=== PATIENT | male | born 1950 | race Caucasian/White ===

== ENCOUNTER 2020-05-16 10:00 | Inpatient (IN) ==
[~2020-05-16 10:00] MED LIST: Buffered Lidocaine 1% SYRIN 1 ml INTRADERM ONE; Famotidine IV 10 MG/ML 2 ml VIAL (20 mg) IV ONE; Lactated Ringers 1000 ml BAG 1,000 ML IV SCH; ceFAZolin 2 GM PREMIX 2 GM/50 ML BAG ONE
[2020-05-16] MEDS ORDERED: Propofol 10 MG/ML 20 ML BTL ONE ×3 (10:08→13:38)
[2020-05-16] MEDS ORDERED: Midazolam 2 mg/2 ml VIAL 1 mg/ml 2 ml VIAL (2 mg) ONE (10:08)
[2020-05-16] MEDS ORDERED: Famotidine IV 10 MG/ML 2 ml VIAL (20 mg) ONE (10:25)
[2020-05-16] MEDS ORDERED: ROPIVACAINE 5 MG/ML 30 ML BTL (0.5%) ONE (11:30)
[2020-05-16] MEDS ORDERED: Ondansetron 4 mg VIAL 2 MG/ML 2 ml VIAL ONE (11:33)
[2020-05-16] MEDS ORDERED: EPHEDrine (Pressors) 50 MG/ML VIAL ONE (12:48)
[2020-05-16] MEDS ORDERED: Morphine 2 MG/ML SYRINGE IV PRN (13:10)
[2020-05-16] MEDS ORDERED: Ondansetron 4 mg VIAL 2 MG/ML 2 ml VIAL IV PRN ×2 (13:10→15:29)
[2020-05-16] MEDS ORDERED: Lactulose 30 ml UDC PO PRN (13:10)
[2020-05-16] MEDS ORDERED: Magnesium Hydroxide LIQ 30 ML UDC PO PRN (13:10)
[2020-05-16] MEDS ORDERED: diPHENhydraMINE 25 mg TAB PO PRN (13:10)
[2020-05-16] MEDS ORDERED: diPHENhydraMINE IV 50 MG/ML 1 ml VIAL (BENADRYL) IV PRN (13:10)
[2020-05-16] MEDS ORDERED: HYDROmorphone 1 MG/1 ML SYRINGE IV PRN (15:29)
[2020-05-16] MEDS ORDERED: fentaNYL 100 mcg/2 ml 50 MCG/ML VIAL IV PRN (15:29)
[2020-05-16] MEDS ORDERED: Naloxone 0.4 mg VIAL 0.4 mg/ml 1 ml VIAL IV PRN (15:29)
[2020-05-16] MEDS ORDERED: fentaNYL 100 mcg/2 ml 50 MCG/ML VIAL ONE (15:36)
[2020-05-16] MEDS: Lactated Ringers 1000 ml BAG 1,000 ML IV SCH (16:45)
[2020-05-16] MEDS: oxyCODONE/Acetamin 5/325 mg TAB PO PRN (19:36)
[2020-05-16] MEDS: ceFAZolin 1 GM ADVAN 1 GM in NS 0.9% 50 ML 50 ML IVPB SCH (20:39)
[2020-05-16] MEDS ORDERED: Latanoprost 0.005% 2.5 ml BTL BOTH EYES SCH (21:00)
[2020-05-16] MEDS: Magnesium Hydroxide LIQ 30 ML UDC PO SCH (22:47)
[2020-05-17] MEDS: oxyCODONE/Acetamin 5/325 mg TAB PO PRN ×2 (01:06→05:42)
[2020-05-17] MEDS: ceFAZolin 1 GM ADVAN 1 GM in NS 0.9% 50 ML 50 ML IVPB SCH ×2 (04:30→12:05)
[2020-05-17] MEDS: Lactated Ringers 1000 ml BAG 1,000 ML IV SCH (04:31)
[2020-05-17 05:59] LABS: Hematocrit 37 % (42-52); Hemoglobin 12.6 g/dL (14.0-18.0); Mean Platelet Volume 7.6 fL (7.4-10.4); Platelet Count 181 10^3/uL (150-450)
[2020-05-17 06:19] LABS: BUN/Creatinine Ratio 13.8 (8-20); Calcium 8.2 mg/dL (8.6-10.3); EGFR African American 104.7 (>60); EGFR Non-African American 86.5 (>60); Potassium 4.1 mmol/L (3.5-5.0)
[2020-05-17] MEDS: Magnesium Hydroxide LIQ 30 ML UDC PO SCH (08:30)
[2020-05-17] MEDS ORDERED: Vitamin THERAPEUTIC TAB PO SCH (09:00)
[2020-05-17 11:35] VITALS: BP 109/65
== END 2020-05-17 12:35 | disposition home or self-care (01) | DRG 470 ==
LOC: AA 10:00 → SSU 16:17
PROVIDERS: ADMIT Orthopaedic Surgery Adult Reconstructive Orthopaedic Surgery; ATTEND Orthopaedic Surgery Adult Reconstructive Orthopaedic Surgery